=== PATIENT | male | born 1940 | race Caucasian/White ===

== ENCOUNTER 2022-12-16 07:00 | Observation (INO) ==
[2022-12-16] MEDS ORDERED: BUPIVACAINE 0.25% PF 30 ML VIAL ONE ×2 (07:09→11:49)
[2022-12-16] MEDS ORDERED: WATER, STERILE FOR INJ 10 ML VIAL ONE ×2 (07:09→11:49)
[2022-12-16] MEDS ORDERED: VANCOMYCIN HCL 1000MG/20ML VIAL ONE ×2 (07:09→11:49)
[2022-12-16] MEDS ORDERED: LIDOCAINE 1% LOCAL 20 ML VIAL ONE (07:09)
--- NOTE | 2022-12-16 08:02 | History & Physical Report ---
Date of Service December 16, 2022 Assessment & Plan (1) Trifascicular block: Plan Plan pacemaker Current rhythm appears to be atrial fibrillation History of Present Illness Chief Complaint: bradycardia Primary Care Provider: Chandan Tracy DO Patient with generally good exercise tolerance but a history of worsening conduction disease and associated bradycardia. Continues to exercise but has noticed some increased bradycardia over the past few weeks. Allergies Allergy/AdvReac Type Severity Reaction Status Date / Time tramadol Allergy Intermediate Vomiting Verified 11/30/22 14:33 Home Medications Medication Instructions Recorded Confirmed Type pantoprazole 40 mg tablet,delayed 40 mg PO BID 11/27/17 11/30/22 History release simvastatin 40 mg tablet 40 mg PO PM 11/27/17 11/30/22 History terazosin 1 mg capsule 2 tab PO HS 11/27/17 11/30/22 History lisinopril 2.5 mg tablet 2.5 mg PO DAILY 09/29/22 11/30/22 History psyllium husk 3.4 gram/5.4 gram 1 tbsp PO DAILY 09/29/22 11/30/22 History oral powder (Metamucil) dutasteride 0.5 mg capsule 0.5 mg PO DAILY #30 caps 11/17/22 11/30/22 Rx vibegron 75 mg tablet (Gemtesa) 75 mg PO DAILY #90 tabs 12/02/22 Rx Past Med/Surg History Medical History (Updated 10/26/22 @ 14:35 by Wu Raman MD) Dyslipidemia 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 Hemorrhoids Malignant neoplasm of prostate Snoring HTN (hypertension) Encounter for pre-operative examination Bradycardia BPH (benign prostatic hyperplasia) Barretts esophagus GERD (gastroesophageal reflux disease) Hypertension Surgical History (Updated 12/05/18 @ 11:56 by Daren Randle MD) S/P vasectomy Hx of left cataract extraction History of esophagogastroduodenoscopy (EGD) History of colonoscopy History of cholecystectomy History of tooth extraction History of tonsillectomy History of adenoidectomy Family History Daughter Family history of diabetes mellitus Social History Smoking Status: Never smoker Cigarettes Per Day: SMOKE IN COLLEGE FOR 2 YEARS; Second Hand Exposure: No; Do You Dip or Chew Tobacco: No; Hx Alcohol Use: Yes Alcohol type: beer Hx Substance Use: No Preferred Language: Azerbaijani Communication Ability: Effective Shell Press Operator Required: No Beliefs That Will Affect Care: None Current Living Situation: Alone Feels Safe at Home: Yes Safety Concerns: Feels Safe At This Time Assistive Devices: Glasses Review of Systems Review of Systems: per HPI Physical Exam Physical Exam: Alert. Answered all questions appropriately Normal respiratory effort Bradycardic rate No edema Results & Data Results & Data Vital Signs (Past 12 Hours) Vital Signs Pulse Resp BP Pulse Ox O2 Del Method 12/16/22 07:16 16 98 Room Air 12/16/22 07:15 42 L 16 153/57 H 98 Room Air
--- NOTE | 2022-12-16 08:03 | Pre Anesthesia Assessment ---
Date of Service December 16, 2022 Pre Sedation Assessment Vital Signs Pulse Resp BP Pulse Ox O2 Del Method 12/16/22 07:16 16 98 Room Air 12/16/22 07:15 42 L 16 153/57 H 98 Room Air Cardiovascular + bradycardic Respiratory + respiratory effort normal Pre-Sedation Airway Assessment Smoking Status: Never smoker Hx Sleep Apnea: No Hx Difficult Intubation: No Short, Thick Neck: No Thyromental Distance: > or= 3.5 Finger Breadths Oral Cavity: + WNL Mallampati Class: III ASA: ASA2 NPO Status Date of Last Intake of Fluids: 12/15/22 Time of Last Intake of Fluids: 18:00 Date of Last Intake of Solid Food: 12/15/22 Time of Last Intake of Solid Foods: 18:00 Procedure Planning Contraindications for Sedation: none Current Medications Reviewed: Yes Notes The planned sedation has been discussed with the patient. Informed Consent was obtained. I have identified the patient, determined the appropriateness of sedation and have assessed the patient immediately prior to the procedure. All medicine(s) and interventions are by my order.
[2022-12-16] MEDS ORDERED: MIDAZOLAM HCL 5 MG/ML 1 ML VIAL ONE ×2 (08:04→12:26)
[2022-12-16] MEDS ORDERED: ceFAZolin 330 MG/ML 1 GM VIAL ONE ×2 (08:04→12:27)
[2022-12-16] MEDS ORDERED: fentaNYL citrate PF 100 MCG/2 ML VIAL ONE ×2 (08:04→12:26)
[2022-12-16] MEDS ORDERED: ACETAMINOPHEN 325 MG TAB PO PRN (09:55)
[2022-12-16] MEDS ORDERED: oxyCODONE HCL IR 5 MG TAB (IMMEDIATE RELEASE) PO PRN (09:55)
--- NOTE | 2022-12-16 09:55 | Electrophysiology Report ---
Date of Service December 16, 2022 Electrophysiology Procedure Electrophysiology Procedure Report Procedure performed: Implantation of dual-chamber permanent pa with left bundle pacing lead [facility] Staff molding manager: Chandler Rizvi MD Indication: The patient is an 82-year-old gentleman with a history of trifascicular block and newly diagnosed bradycardia. He presented for device implant in atrial fibrillation and what appeared to be complete heart block. He was advised to undergo permanent pacemaker implantation for symptomatic nonreversible AV node dysfunction. Dual-chamber device was selected as our intention is to return him to sinus rhythm and maintain AV synchrony. Procedure in detail: The patient was informed of the risks benefits and alternatives to the intended procedure and she wished to proceed. She was taken to the electrophysiology suite in a fasting state. A preoperative antibiotic had been administered. The patient was monitored electrocardiographically throughout today's procedure and conscious sedation was administered per protocol. The left upper pectoral area is prepped and draped in usual sterile fashion. This area was anesthetized using subcutaneous administration of a xylocaine solution. An incision was made at this site and carried down to the prepectoralis fascia using sharp dissection. Electrocautery was also employed for dissection as well as for hemostasis. A device pocket was fashioned tissues above the pectoralis muscle. Subsequent to this maneuver the left axillary vein was accessed using modified Seldinger technique. A sheath was placed over guidewire and used facilitate passage of the guiding catheter for mapping of the interventricular septum. Appropriate location was identified the pacing lead was advanced into the interventricular septum until the appropriate sensing, threshold and electrical parameters were obtained. This point the guiding catheter was removed. The proximal portion lead was sutured to prepectoralis fascia using nonabsorbable suture. Sheath was placed over the remaining guidewire and used to facilitate passage of a pacing lead to the right atrium under fluoroscopic guidance. Adequate sensing threshold parameters were obtained prior to active fixation of this lead to the endocardial surface. Proximal portion lead was then sutured to prepectoralis fascia using nonabsorbable suture. The device pocket was irrigated with antibiotic solution. The leads were then attached to the device. The device and leads were then placed in the pocket and pocket was closed in 3 layers of absorbable suture. Steri-Strips and sterile dressing were applied. The device was tested noninvasively prior to conclusion the procedure. The patient tolerated procedure well there no immediate complications. Equipment used: New pulse generator: [employer]. Model number: [id number] serial number [id number] Right atrial lead: [employer]. Model number: 5076 serial number [id number] Right ventricular lead: [employer]. Model number: 3830 serial numb er L [id number] Measured data: Right atrial lead: Patient was in atrial fibrillation at the time of implant. Pacing impedance was 613 Ohms Right ventricular lead: R-waves measured 5 mV. Pacing threshold was 1.5 volts at 0.4 millisecond with a pacing impedance of 703 Ohms Impression: Successful implantation of dual-chamber permanent pacemaker with left bundle pacing lead [facility] Electrophysiology codes EP Procedure 1: Electrophysiology: 51493 Bundle of His recording Pacing Procedure 1: Pacin Insert/Replace Pacer A & V PG Moderate Sedation Codes Moderate Sedation Codes Procedure 1: Sedation/Anesthesia: 46817 Mod Sedation by the same physician;Init15 Min Child Age 5 & Up Procedure 2: Sedation/Anesthesia: 02776 Mod Sedation by the same physician; Ea [id number] Minutes
--- NOTE | 2022-12-16 09:55 | Post Anesthesia Assessment ---
Date of Service December 16, 2022 Post Sedation Assessment Vital Signs Pulse Resp BP Pulse Ox O2 Del Method 12/16/22 07:16 16 98 Room Air 12/16/22 07:15 42 L 16 153/57 H 98 Room Air Recovery Score Activity: Moves 4 extremities Respiration: Deep Breath/Cough Circulation: +/-20% PreAnes Value Consciousness: Arouseable (by name) Oxygen Saturation: O2 needed for >90% Discharge Sedation Level of Care: Fast Track Phase II Post Sedation Plan On clinical assessment, the patient appears to have tolerated the sedation without complications. Patient is recovering as anticipated. Patient will continue to be monitored by nursing and may be discharged when sedation discharge criteria are met per below protocol. Upon Completions of procedure up to 15 minutes continue every 5 minute vital signs and the P.A.R. score; then discharge to a Phase I or Fast Track to Phase II per the following guidelines: * Discharge Patient to appropriate Phase II area if PAR is 8 or greater or return to pre- procedure baseline. The post - procedure orders will be as directed. * If PAR score is less than 8 or not return to pre-procedure baseline then patient will follow Phase I monitoring till PAR is reached for Phase II. The Phase I may be done in procedure room or may call to secure a Phase I area. * If naloxone or flumazenil are used for reversal, hold in Phase I for continued monitoring from when last reversal dose was given for a minimum of 60 minutes or longer pending the nurse and/or physician discretion of patient condition before discharge to Phase II. Please call the Sedation Physician to re-evaluate and complete post-note for discharge to Phase II area. Do NOT discharge from procedure sedation or Phase 1 until post- sedation evaluation note is complete by procedure /sedation MD Sedation Discharge Instructions to be given to the patient at discharge to home.
[2022-12-16] MEDS ORDERED: BUPIVACAINE 0.5 % 5 MG/1 ML PF 10ML VIAL ONE (11:49)
--- NOTE | 2022-12-16 12:09 | XRay Report ---
XR chest 1V portable HISTORY: 82 years-old Male post pacemaker status post placement of a left subclavian pacer COMPARISON: 11/20/2018 TECHNIQUE: AP view of the chest FINDINGS: Cardiac silhouette is enlarged. Status post placement of a dual lead left subclavian pacer. No postpr ocedural pneumothorax. No pleural effusion or overt pulmonary edema. 1.8 cm nodular left basilar opac ity. Degenerative changes of the shoulders and spine. IMPRESSION: 1. Status post placement of a left subclavian pacer. No postprocedural pneumothorax. 2. 1.8 cm nodular left basilar opacity may be secondary to summation density versus a pulmonary nodul e. Attention at follow-up recommended. ACT 112: Negative or not required by law. The above report was generated using voice recognition software. It may contain grammatical, syntax o r spelling errors. Electronically signed by: Luis Young M.D. 12/16/2022 12:08 PM
--- NOTE | 2022-12-16 12:23 | Pre Anesthesia Assessment ---
Date of Service December 16, 2022 Pre Sedation Assessment Vital Signs Pulse Pulse Resp BP BP Pulse Ox O2 Del Method 12/16/22 12:00 62 18 149/83 H 96 Room Air 12/16/22 11:30 60 18 159/85 H 96 Room Air 12/16/22 11:18 60 18 158/82 H 96 Room Air 12/16/22 11:00 80 18 160/99 H 95 Room Air 12/16/22 10:45 60 18 145/94 H 95 Room Air 12/16/22 10:30 60 18 129/100 95 Room Air 12/16/22 10:15 60 18 173/94 H 95 Room Air 12/16/22 10:05 60 18 166/88 H 99 Room Air 12/16/22 07:16 16 98 Room Air 12/16/22 07:15 42 L 16 153/57 H 98 Room Air Cardiovascular + regular rate and + regular rhythm Respiratory + respiratory effort normal Pre-Sedation Airway Assessment Smoking Status: Never smoker Hx Sleep Apnea: No Hx Difficult Intubation: No Short, Thick Neck: No Thyromental Distance: > or= 3.5 Finger Breadths Oral Cavity: + WNL Mallampati Class: III ASA: ASA2 NPO Status Date of Last Intake of Fluids: 12/16/22 Time of Last Intake of Fluids: 10:00 Date of Last Intake of Solid Food: 12/16/22 Time of Last Intake of Solid Foods: 10:00 Procedure Planning Contraindications for Sedation: none Current Medications Reviewed: Yes Notes The planned sedation has been discussed with the patient. Informed Consent was obtained. I have identified the patient, determined the appropriateness of sedation and have assessed the patient immediately prior to the procedure. All medicine(s) and interventions are by my order.
--- NOTE | 2022-12-16 13:34 | Post Anesthesia Assessment ---
Date of Service December 16, 2022 Post Sedation Assessment Vital Signs Pulse Pulse Resp BP BP Pulse Ox O2 Del Method 12/16/22 12:00 62 18 149/83 H 96 Room Air 12/16/22 11:30 60 18 159/85 H 96 Room Air 12/16/22 11:18 60 18 158/82 H 96 Room Air 12/16/22 11:00 80 18 160/99 H 95 Room Air 12/16/22 10:45 60 18 145/94 H 95 Room Air 12/16/22 10:30 60 18 129/100 95 Room Air 12/16/22 10:15 60 18 173/94 H 95 Room Air 12/16/22 10:05 60 18 166/88 H 99 Room Air 12/16/22 07:16 16 98 Room Air 12/16/22 07:15 42 L 16 153/57 H 98 Room Air Recovery Score Activity: Moves 4 extremities Respiration: Deep Breath/Cough Circulation: +/-20% PreAnes Value Consciousness: Fully Awake Oxygen Saturation: > 92% On Room Air Post Anesthesia Score: 10 Discharge Sedation Level of Care: Fast Track Phase II Post Sedation Plan On clinical assessment, the patient appears to have tolerated the sedation without complications. Patient is recovering as anticipated. Patient will continue to be monitored by nursing and may be discharged when sedation discharge criteria are met per below protocol. Upon Completions of procedure up to 15 minutes continue every 5 minute vital signs and the P.A.R. score; then discharge to a Phase I or Fast Track to Phase II per the following guidelines: * Discharge Patient to appropriate Phase II area if PAR is 8 or greater or return to pre- procedure baseline. The post - procedure orders will be as directed. * If PAR score is less than 8 or not return to pre-procedure baseline then patient will follow Phase I monitoring till PAR is reached for Phase II. The Phase I may be done in procedure room or may call to secure a Phase I area. * If naloxone or flumazenil are used for reversal, hold in Phase I for continued monitoring from when last reversal dose was given for a minimum of 60 minutes or longer pending the nurse and/or physician discretion of patient condition before discharge to Phase II. Please call the Sedation Physician to re-evaluate and complete post-note for discharge to Phase II area. Do NOT discharge from procedure sedation or Phase 1 until post- sedation evaluation note is complete by procedure /sedation MD Sedation Discharge Instructions to be given to the patient at discharge to home.
--- NOTE | 2022-12-16 13:34 | Electrophysiology Report ---
Date of Service December 16, 2022 Electrophysiology Procedure Electrophysiology Procedure Report Procedure performed: Right atrial lead revision Staff unhairing machine operator: Chandler Rizvi MD Indication: The patient is an 82-year-old gentleman who had previously undergone implantation of dual-chamber permanent pacemaker. He was noted in the recovery area to have abnormal function of the device and a right atrial lead dislodgement was confirmed on x-ray. [facility]. Procedure in detail: The patient was informed the risks benefits alternatives to the intended procedure. He understood which proceed. He was taken to the electrophysiology suite. Conscious sedation was administered per protocol. The area over the previously implanted device was prepped and draped in usual sterile fashion. This area was anesthetized using subcutaneous menstruation of lidocaine and Marcaine solution. Incision was made at this site and carried down to the previously implanted pulse generator and leads. Pulse generator leads were then freed from the pocket. The right atrial lead was detached from pulse generator. The helix was retracted and a stylet was passed through the lead for repositioning. The lead was repositioned in the right atrium. Adequate sensing threshold parameters were obtained prior to active fixation of lead to the endocardial surface. Proximal portion lead was then sutured to prepectoralis fascia using nonabsorbable suture. The device pocket was irrigated with an antibiotic solution. The lead was then attached to the device. The device and leads were placed in the pocket and closed in an antibiotic impregnated envelope. The pocket was subsequently closed in 3 layers of absorbable suture. Steri-Strips and sterile dressing were applied. The device was tested noninvasively prior inclusion the procedure. The patient tolerated procedure well. There were no immediate complications. Equipment used: New pulse generator: [employer]. Model number: [id number] serial number [id number] Right atrial lead: [employer]. Model number: 5076 serial number [id number] Right ventricular lead: [employer]. Model number: 3830 serial number [id number] Impression: Successful right atrial lead revision [facility] Electrophysiology codes Pacing Procedure 1: Pacin Reposition Pacer/ICD electrode
[2022-12-16] MEDS: lisinopril 2.5 MG TAB PO SCH (14:51)
[2022-12-16] MEDS ORDERED: ceFAZolin 1000MG 1,000 MG/7.5 ML SYR IV ONE (17:00)
[2022-12-16] MEDS: PANTOprazole 40 MG TAB PO SCH (20:01)
--- NOTE | 2022-12-16 20:35 | Electrocardiogram Report ---
Test Reason : Blood Pressure : / mmHG Vent. Rate : 063 BPM Atrial Rate : 055 BPM P-R Int : 000 ms QRS Dur : 114 ms QT Int : 428 ms P-R-T Axes : 000 -31 162 degrees QTc Int : 437 ms Ventricular-paced rhythm with occasional Premature ventricular complexes Abnormal ECG When compared with ECG of 20-NOV-2018 10:05, Electronic ventricular pacemaker has replaced Sinus rhythm Confirmed by Chandler Rizvi ([id number]) on 12/16/2022 8:34:45 PM Referred By: Willie Rizvi Confirmed By:Willie Rizvi
[2022-12-16] MEDS ORDERED: TERAZOSIN HCL 1 MG CAP PO SCH (21:00)
[2022-12-16] MEDS ORDERED: SIMVASTATIN 40 MG TAB PO SCH (21:00)
[2022-12-17] MEDS: lisinopril 2.5 MG TAB PO SCH (08:09)
[2022-12-17] MEDS: PANTOprazole 40 MG TAB PO SCH (08:10)
[2022-12-17] MEDS ORDERED: FINASTERIDE 5 MG TAB PO SCH (09:00)
[2022-12-17] MEDS ORDERED: VIBEGRON 75 MG TAB PO SCH (09:00)
--- NOTE | 2022-12-17 09:25 | Discharge Summary ---
Date of Service December 17, 2022 Admission HPI Per Admitting Provider Patient with generally good exercise tolerance but a history of worsening conduction disease and associated bradycardia. Continues to exercise but has noticed some increased bradycardia over the past few weeks. Principal Diagnosis Complete heart block, atrial fibrillation Discharge Exam On the day of discharge the device implant site was without significant hematoma or drainage. No significant erythema. Mild ecchymosis. Discharge Data Allergies Allergy/AdvReac Type Severity Reaction Status Date / Time tramadol Allergy Intermediate Vomiting Verified 12/16/22 20:42 Procedures Performed Operation Date: 12/16/22 12:45 Actual Procedures p Lead Reposition RA/RV - Chandler Rizvi MD Ordered Studies 12/16/22 08:00 EP Lab Images for PACS ONCE 12/16/22 08:20 CL Cath Imgs for PACS use only Routine 12/16/22 12:30 EP Lab Images for PACS ONCE Hospital Course (1) Trifascicular block: The patient had a history of trifascicular block were present in what appeared to be complete heart block. On the day of admission he underwent implantation of a dual-chamber permanent pacemaker with early dislodgement of the right atrial lead. The patient was brought back to the EP lab shortly after the initial procedure for lead revision. The remainder of the hospitalization was uncomplicated. The following morning a chest x-ray demonstrated stable lead position. Device interrogation revealed good function of both the atrial and ventricular leads while the patient was still in persistent atrial fibrillation. No pneumothorax. (2) Atrial fibrillation: The patient presented in atrial fibrillation. This was not previously documented. The patient was not symptomatic. At the time of discharge he was prescribed systemic anticoagulation with instructions for initiation. Plan Plan pacemaker Current rhythm appears to be atrial fibrillation Total Time Total Time Spent Total Time Spent (In Minutes): 20 Discharge Plan Discharge Items Patient Disposition: Home - Self-Care Reason For Visit: BRADYCARDIA Discharge Diagnosis: bradycardia Condition on Discharge: Good Activity: Per Instructions section Activity Comment: No lifting left arm above shoulder or behind neck for 6 weeks Lifting: No more than 10 pounds Lifting Comment: with left arm Bathing: Keep incision dry Bathing Comment: Keep wound dry and steri-strip intact until f/u next week Exercise/Sports: Rest today and Gradually increase as tolerated Driving/Machine Use: Resume 1 day after discharge Non-emergency contact: Stationary Engineer Supervisor Call non-emergency contact if: your pain is concerning for you, you have a fever, your wound has increased redness and your wound has increased drainage Follow-up/Referrals: Chandler Rizvi MD [Physician] - 12/27/22 2:00 pm (s/p pacer ) Chandan Tracy DO [Primary Care Provider] - 12/30/22 9:40 am (Please arrive by 9:25. You will be seeing Dr Sawyer, in Dr Tracy's office) Diet: Heart Healthy Addtl Attending Provider Instructions: Start Eliquis Monday12/19/2022 Pending Studies at Discharge: No Stand-Alone Forms: My [facility] [employer], Smoking Cessation Medications and DC Order Prescriptions: New Eliquis 5 mg tablet 5 mg PO Q12H Qty: 60 3RF Continued dutasteride 0.5 mg capsule 0.5 mg PO DAILY Qty: 30 7RF Gemtesa 75 mg tablet 75 mg PO DAILY Qty: 90 3RF lisinopril 2.5 mg tablet 2.5 mg PO DAILY Metamucil 3.4 gram/5.4 gram powder 1 tbsp PO DAILY Rx Instructions: mix into at least 8 oz of water or juice before administering terazosin 1 mg Capsule 2 tab PO HS simvastatin 40 mg Tablet 40 mg PO PM pantoprazole 40 mg Tablet,Delayed Release (Dr/Ec) 40 mg PO BID Discharge Orders: Discharge Order (Routine); Ordered 12/17/22 Ordered By: Chandler Medina/Other Patient Handouts: Pacemaker Implant Dc, Identifying Your Heart Risks Admission Data Admit Date/Time: 12/16/22 10:24 Attending Provider: Chandler Rizvi Admit Provider: Chandler Rizvi Primary Care Provider: Chandan Tracy Other Interventions: Discharge Summary Assessment (RN) Last Done: 12/17/22 09:14 Coding Level of Care Code 68773 IN/OBS DISCH 30 MIN/LESS Diagnoses Trifascicular block I45.3 Atrial fibrillation I48.91
--- NOTE | 2022-12-17 19:24 | XRay Report ---
XR chest 2V PA/lateral CLINICAL HISTORY: post pacemaker. no lifting left arm TECHNIQUE: 2 views of the chest were obtained. Comparison: Comparison is made to chest radiograph 12/16/2022 FINDINGS: Satisfactory position of placement leads. The cardiomediastinal silhouette is normal. The lungs are c lear. Trace blunting of the abdomen angles may represent scarring. No pneumothorax is seen. IMPRESSION: Interval placement of a pacemaker with the leads in satisfactory position. No evidence of pneumothora x. ACT 112: Negative or not required by law. Electronically signed by: Michael Brown M.D. 12/17/2022 7:21 PM
--- OUTSIDE RECORDS SUMMARY | 2022-12-22 13:42 | External Medical Summary | Continuity of Care Document ---
Author Name Unknown Organization [facility] [address] [facility] 1 Address [address] [place], [place] [id number] Care Team Providers Care Operator [employer]yst Concentration Name Role Phone Chandan Tracy Primary Care Physician [phone] Encounter [facility] [id number] Date(s): 12/09/22 - 12/09/22 [facility] [address] [facility] 1 [facility] [address] [facility] [place], [place] [phone] Encounter Diagnosis Bradycardia, unspecified(Final) - Other specified abnormal findings of blood chemistry(Final) - Discharge Disposition: Home or Self Care Attending Physician: DO Tracy Franklin J Referring Physician: DO Tracy Franklin J Allergies, Adverse Reactions, Alerts Substance Reaction Severity Status TraMADol Hydrochloride ER uncontrollable vomiting Active Immunizations Given and Recorded Vaccine Date Status Refusal Reason influenza virus vaccine, inactivated 11/23/22 Give n influenza virus vaccine, inactivated 1 11/08/19 Re corded influenza virus vaccine, inactivated 12/26/18 Give n influenza virus vaccine, inactivated 12/07/15 Give n tetanus/diphtheria/pertuss, acel (Tdap) 09/22/22 G iven tetanus/diphtheria/pertuss, acel (Tdap) 2 11/04/10 Given SARS-CoV-2 mRNA-1273 (6y+ bivalent) 3 10/27/21 Rec orded SARS-CoV-2 (COVID-19) mRNA-1273 vaccine 4 12/14/20 Recorded SARS-CoV-2 (COVID-19) mRNA-1273 vaccine 5 04/12/20 Recorded SARS-CoV-2 (COVID-19) mRNA-1273 vaccine 6 03/08/20 Recorded pneumococcal 13-valent vaccine 12/07/15 Given pneumococcal 23-valent vaccine 7 11/04/10 Given zoster vaccine live 02/13/10 Recorded 1Result Comment: Given at [facility] 2Result Comment: [11/04/2010] confirmed by karishma 3Result Comment: 2022-03-07: Historical information-source unspecified 4Result Comment: 2022-03-07: Historical information-source unspecified 5Result Comment: 2022-03-07: Historical information-source unspecified 6Result Comment: 2022-03-07: Historical information-source unspecified 7Result Comment: [11/04/2010] confirmed by pebbles Medications Metamucil 3.4 g/5.2 g oral powder for reconstitution Start: 08/11/22 14:51:00 EDT, 3.4 g =, PO, bid Start Date: 08/11/22 Status: Ordered pantoprazole 40 mg oral delayed release tablet Start: 12/27/21 14:47:00 EST, See Instructions, Disp# 180 tab, Refills: 3, TAKE 1 TABLET BY MOUTH DAILY, Pharmacy: [facility] [id number] Start Date: 12/27/21 Status: Ordered simvastatin 40 mg oral tablet Start: 04/13/22 18:12:00 EST, See Instructions, Disp# 90 tab, Refills: 3, TAKE 1 TABLET DAILY, Pharmacy: [facility] [id number] Start Date: 04/13/22 Status: Ordered terazosin 2 mg oral capsule Start: 06/15/22 14:58:00 EDT, See Instructions, Disp# 90 cap, Refills: 3, TAKE 1 CAPSULE BY MOUTH EVERY DAY, Pharmacy: [facility] Start Date: 06/15/22 Status: Ordered Problem List Condition Confirmation Course Effective Dates Status Health Status Informant AK (actinic keratosis) Confirmed Active Cholecystectomy Confirmed Active First degree AV block Confirmed Active Esophageal reflux Confirmed Active Hypertension Confirmed Active HYPERTROPHY (BENIGN) OF PROSTATE Confirmed Active Low back pain Confirmed Active Lumbar facet joint pain Confirmed Active MALIGNANT NEOPLASM OF PROSTATE Confirmed 02/17/10 Active Fracture of 5th metatarsal Confirmed Active MOBITZ TYPE I AV BLOCK Confirmed Active Need for prophylactic vaccination and inoculation against influenza Confirmed Active PURE HYPERCHOLESTEROLEMIA 1 Confirmed Active Depression, major, recurrent, mild Confirmed Active ROUTINE GENERAL MEDICAL EXAMINATION AT A HEALTH CARE FACILITY Confirmed Active Sinus bradycardia Confirmed Active SK (seborrheic keratosis) Confirmed Active Snoring Confirmed Active Lumbar paraspinal muscle spasm Confirmed Active Tonsillectomy with adenoidectomy 2 Confirmed Active v70.0 Confirmed Active Vasectomy 3 Confirmed Active 1LDL: 160 [id number] Procedures Procedure Date Related Diagnosis Body Site Status Shave biopsy and cauterization of skin 11/25/22 Completed Mohs' micrographic surgery 08/10/21 Completed Shave biopsy and cauterization of skin 07/08/21 Completed Excision 05/14/20 Completed Chest x-ray 1 11/20/18 Completed Mohs micrographic surgery 10/22/18 Completed Shave biopsy 09/10/18 Completed Upper GI endoscopy 2 01/19/18 Comp leted Upper GI endoscopy 3 01/18/17 Comp leted Curettage and cauterization of skin lesion 4 09/23/16 Completed Shave biopsy of skin 02/26/14 Comp leted Shave biopsy and cauterization of skin 02/20/13 Completed gallbladder Completed prostate BX Completed skin biopsy Completed T & A Completed TUNA Completed 1no acute process 2-Z-line irregular , 32 cm from the incisors -Medium sized hiatal hernia -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 Biopsied. 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, biopised 4left upper medial chest Results Laboratory List Name Date Complete Blood Count w Differential (CBC ,DIFFH) 12/09/22 Comprehensive Metabolic Panel (COMP META B PANEL) 12/09/22 Lipid Profile (LIPOPROTEINS) 12/09/22 T4, Free (T4, FREE) 12/09/22 Thyroid Stimulating Hormone (TSH) Most recent to oldest [Reference Range]: 1 eGFR CKD-EPI [>60 mL/min/1.73 m2] 60 mL/ min/1.73 m2 1 *LOW* (12/09/22 7:38 AM) Non-HDL 78 mg/dL 2 (12/09/22 7:38 AM) Estimated CrCl 42.39 mL/min (12/09/22 2:24 PM) MPV [9.0-12.2 fL] 10.0 fL (12/09/22 7:38 AM) Immature Gran% 0.2 % (12/09/22 7:38 AM) Neut% 55.2 % (12/09/22 7:38 AM) Lymph% 26.0 % (12/09/22 7:38 AM) [place]% 13.6 % (12/09/22 7:38 AM) Baso% 0.5 % (12/09/22 7:38 AM) Eos% 4.5 % (12/09/22 7:38 AM) Immat Gran, Abs [0-0.4 K/uL] 0.01 K/uL 3 (12/09/22 7:38 AM) Neut, Abs [2.0-7.7 K/uL] 2.23 K/uL (12/09/22 7:38 AM) Lymph, Abs [1.0-3.4 K/uL] 1.05 K/uL (12/09/22 7:38 AM) [place], Abs [0-1.0 K/uL] 0.55 K/uL (12/09/22 7:38 AM) Baso, Abs [0-0.1 K/uL] 0.02 K/uL (12/09/22 7:38 AM) Eos, Abs [0-0.5 K/uL] 0.18 K/uL (12/09/22 7:38 AM) Type of Diff: AUTO *Unknown* (12/09/22 7:38 AM) RDW [11.5-14.2 %] 13.6 % (12/09/22 7:38 AM) Anion Gap [5-14 mmol/L] 5 mmol/L (12/09/22 7:38 AM) Alb [3.5-5.0 g/dL] 3.8 g/dL (12/09/22 7:38 AM) Alk Phos [38-126 unit/L] 81 unit/L (12/09/22 7:38 AM) ALT [<50 unit/L] 24 unit/L (12/09/22 7:38 AM) AST [15-46 unit/L] 37 unit/L (12/09/22 7:38 AM) BUN [7-20 mg/dL] 17 mg/dL (12/09/22 7:38 AM) Ca [8.4-10.2 mg/dL] 8.8 mg/dL (12/09/22 7:38 AM) Chol/HDL 2 (12/09/22 7:38 AM) Chol [125-200 mg/dL] 140 mg/dL (12/09/22 7:38 AM) Cl- [96-107 mmol/L] 107 mmol/L (12/09/22 AM) HCO3 [22-30 mmol/L] 27 mmol/L (12/09/22:38 AM) Cret [0.70-1.30 mg/dL] 1.21 mg/dL (12/09/22:38 AM) Glu [74-106 mg/dL] 92 mg/dL (12/09/22:38 AM) Hct [39-48 %] 44.0 % (12/09/22: AM) HDL [>35 mg/dL] 62 mg/dL (12/09/22 AM) Hgb [13.0-17.0 g/dL] 14.7 g/dL (12/09/22: AM) K [3.5-5.1 mmol/L] 4.4 mmol/L (12/09/22 AM) LDL Chol, Calculated [50-130 mg/dL] 71 m g/dL (12/09/22: AM) MCH [28-33 pg] 28.7 pg (12/09/22: AM) MCHC [32-36 g/dL] 33.4 g/dL (12/09/22:38 AM) MCV [81-96 fL] 85.9 fL (12/09/2238 AM) Na [137-145 mmol/L] 139 mmol/L (12/09/22 AM) Plts [150-350 K/uL] 155 K/uL (12/09/22:38 AM) RBC [4.40-5.60 M/uL] 5.12 M/uL (12/09/22:38 AM) Free T4 [0.70-1.48 ng/dL] 0.99 ng/dL 4 (12/09/2238 AM) T Bili [0.2-1.3 mg/dL] 1.1 mg/dL (12/09/22:38 AM) Prot [6.3-8.2 g/dL] 6.9 g/dL (10/27/23 7:38 AM) TG [<200 mg/dL] 35 mg/dL (12/09/22 7:38 AM) TSH [0.47-4.68 uIU/mL] 2.04 uIU/mL 5 (12/09/22 7:38 AM) WBC [4.0-10.4 K/uL] 4.04 K/uL (12/09/22 7:38 AM) 1Result Comment: Testing Performed By: Dept of Pathology [facility], [address] [place] [address], [place] [id number] 2Result Comment: Testing Performed By: Dept of Pathology [facility], [address] [place] [address], [place] [id number] 3Result Comment: Testing Performed By: Dept of Pathology [facility], [address] [place] [address], [place] [id number] 4Result Comment: Testing Performed By: Dept of Pathology [facility], [address] [place] [address], [place] [id number] 5Result Comment: Testing Performed By: Dept of Pathology [facility], [address] [place] [address], [place] [id number] Social History Social History Type Response Tobacco 1 Smoking Status Never smoked cigaret radhames Sex Male 1quit smoking in 1963 after smoking 1 PPD x 2 years Patient Care team information Care Team Personnel Name: MD Jon, Fidel Cheney Position: Physician - Family Med Member Role: Lifetime Relationship Address: Address: [address] [place] [address] [place] Name: YFN Berrios Tara Position: Nurse Pract - Family Med Member Role: Lifetime Relationship Address: Address: [address] [place] [address] [place] Name: DO Tracy Franklin J Position: Physician - Family Med Member Role: Lifetime Relationship Address: Address: [address] [address] [place] Name: Filemon Guerra MD, Maurilio Position: Resident Member Role: Lifetime Relationship Address: Address: [address] [place] [address] [place] Name: AMADO Morel Christina L Position: Physician - Podiatry Member Role: Lifetime Relationship Address: Address: [address] [address] [place] Care Team Related Persons Name: AKILAH QUINN Address: home [address] [place] [address], [place] [id number]
== END 2022-12-17 10:33 | disposition home or self-care (01) ==
LOC: EP 07:00 → 2S 07:00
DX: I45.3 Trifascicular block; Z88.6 Allergy status to analgesic agent; Y83.1 Surgical operation with implant of artificial internal device as the cause of abnormal reaction of the patient, or of later complication, without mention of misadventure at the time of the procedure; T82.120A Displacement of cardiac electrode, initial encounter; I48.91 Unspecified atrial fibrillation; R00.1 Bradycardia, unspecified; Z79.899 Other long term (current) drug therapy